=== PATIENT | female | born 1990 | race Caucasian/White ===

== ENCOUNTER → 2016-07-27 | Outpatient (REF) | payer BC ==
[2016-07-27 14:30] LABS: BASO % 0.4 % (0.0-1.0); EOS % 0.8 % (0.0-3.0); LARGE UNSTAINED CELL # 0.2 K/mm3 (0.0-0.4); LARGE UNSTAINED CELL % 2.3 % (0.0-4.0); LYMPH # 1.8 K/mm3 (1.5-6.5); LYMPH % 27.2 % (24.0-44.0); MEAN CORPUSCULAR HEMOGLOBIN 30.5 pg (27.0-33.0); MEAN CORPUSCULAR HGB CONC 33.4 g/dl (32.0-36.5); MEAN CORPUSCULAR VOLUME 91.4 fl (80.0-96.0); MONO # 0.4 K/mm3 (0.0-0.8); MONO % 6.4 % (0.0-5.0); NEUTROPHILS # 4.3 K/mm3 (1.8-7.7); NEUTROPHILS % 62.9 % (36.0-66.0); PLATELET COUNT, AUTOMATED 221 k/mm3 (150-450); RED CELL DISTRIBUTION WIDTH 12.2 % (11.5-14.5); WHITE BLOOD COUNT 6.8 K/mm3 (4.0-10.0)
[2016-07-27 15:02] LABS: THYROXINE (T4) 8.7 UG/DL (4.5-12.0)
== END ==
LOC: M LAB REF 12:54
PROVIDERS: ATTEND Advanced Practice Midwife
DX: Z80.8 Family history of malignant neoplasm of other organs or systems (principal)

== ENCOUNTER → 2016-08-15 | Outpatient (REF) | payer BC | LOC: M LAB REF 12:47 | PROVIDERS: ATTEND Advanced Practice Midwife | DX: E07.89 Other specified disorders of thyroid (principal) ==

== ENCOUNTER → 2016-08-23 | Outpatient (REF) | payer BC | LOC: M LAB REF 12:38 | PROVIDERS: ATTEND Advanced Practice Midwife | DX: L73.2 Hidradenitis suppurativa (principal) ==

== ENCOUNTER → 2016-11-07 | Outpatient (REF) | payer BC ==
[2016-11-07 18:46] LABS: FREE T4 1.78 NG/DL (0.76-1.46)
== END ==
LOC: M LABDRAW1 17:15
PROVIDERS: ATTEND Internal Medicine Endocrinology, Diabetes & Metabolism
DX: E06.3 Autoimmune thyroiditis (principal)

== ENCOUNTER → 2016-11-23 | Outpatient (REF) | payer BC | LOC: M LAB REF 12:54 | PROVIDERS: ATTEND Advanced Practice Midwife | DX: L66.2 Folliculitis decalvans (principal) ==

== ENCOUNTER → 2017-01-02 | Outpatient (REF) | payer BC ==
[2017-01-02 19:18] LABS: FREE T4 1.71 NG/DL (0.76-1.46)
== END ==
LOC: M LABDRAW1 15:10
PROVIDERS: ATTEND Nurse Practitioner Family
DX: E06.3 Autoimmune thyroiditis (principal)

== ENCOUNTER → 2017-03-13 | Outpatient (REF) | payer BC ==
[2017-03-13 14:22] LABS: FREE T4 0.91 NG/DL (0.76-1.46)
== END ==
LOC: M LAB REF 13:21
PROVIDERS: ATTEND Internal Medicine Endocrinology, Diabetes & Metabolism
DX: E06.3 Autoimmune thyroiditis (principal)

== ENCOUNTER → 2017-05-11 | Outpatient (REF) | payer BC ==
[2017-05-11 16:15] LABS: FREE T4 0.95 NG/DL (0.76-1.46)
== END ==
LOC: M LABDRAW1 13:12
DX: E06.3 Autoimmune thyroiditis (principal)
CPT/HCPCS: 84443

== ENCOUNTER → 2017-07-13 | Outpatient (REF) | payer BC ==
[2017-07-13 11:36] LABS: FREE T4 1.03 NG/DL (0.76-1.46)
== END ==
LOC: M LABDRAW1 09:21
DX: E06.3 Autoimmune thyroiditis (principal)
CPT/HCPCS: 84443

== ENCOUNTER → 2017-10-18 | Outpatient (REF) | payer BC ==
[2017-10-18 16:32] LABS: THYROXINE (T4) 12.2 UG/DL (4.5-12.0)
== END ==
LOC: M LABDRAW1 15:39
DX: E06.3 Autoimmune thyroiditis (principal)
CPT/HCPCS: 84443

== ENCOUNTER → 2018-01-07 | Outpatient (REF) | payer BC ==
[2018-01-07 13:23] LABS: FREE T4 1.15 NG/DL (0.76-1.46)
== END ==
LOC: M LABDRAW1 11:54
DX: E06.3 Autoimmune thyroiditis (principal)
CPT/HCPCS: 84443

== ENCOUNTER → 2018-07-18 | Outpatient (REF) | payer BC ==
[2018-07-18 17:39] LABS: FREE T4 1.05 NG/DL (0.76-1.46); THYROID STIMULATING HORMONE 2.46 uIU/ML (0.358-3.740)
== END ==
LOC: M LABDRAW1 16:06
PROVIDERS: ATTEND Internal Medicine Endocrinology, Diabetes & Metabolism
DX: E06.3 Autoimmune thyroiditis (principal)

== ENCOUNTER → 2020-07-09 | Outpatient (REF) | payer BC ==
[2020-07-09 17:56] LABS: FREE T4 0.85 NG/DL (0.76-1.46); THYROID STIMULATING HORMONE 6.19 uIU/ML (0.358-3.740)
== END ==
LOC: M PLALAB 16:52
PROVIDERS: ATTEND Nurse Practitioner Family
DX: E06.3 Autoimmune thyroiditis (principal)

== ENCOUNTER → 2020-09-08 | Outpatient (REF) | payer BC ==
[2020-09-08 14:45] LABS: FREE T4 1.07 NG/DL (0.76-1.46); THYROID STIMULATING HORMONE 2.84 uIU/ML (0.358-3.740)
== END ==
LOC: M PLALAB 13:04
PROVIDERS: ATTEND Nurse Practitioner Family
DX: E06.3 Autoimmune thyroiditis (principal)

== ENCOUNTER → 2021-01-04 | Outpatient (CLI) | payer BC ==
[2021-01-04 17:58] LABS: FREE T4 1.1 NG/DL (0.76-1.46); THYROID STIMULATING HORMONE 2.74 uIU/ML (0.358-3.740)
== END ==
LOC: M PLALAB 14:05
PROVIDERS: ATTEND Nurse Practitioner Family
DX: E06.3 Autoimmune thyroiditis (principal)

== ENCOUNTER → 2021-07-27 | Outpatient (CLI) | payer BC ==
[2021-07-27 18:41] LABS: FREE T4 1.04 NG/DL (0.76-1.46); THYROID STIMULATING HORMONE 4.87 uIU/ML (0.358-3.740)
== END ==
LOC: M PLALAB 10:00
PROVIDERS: ATTEND Nurse Practitioner Family
DX: E06.3 Autoimmune thyroiditis (principal)

== ENCOUNTER → 2022-09-05 | Outpatient (CLI) | payer BC ==
[2022-09-05 11:50] LABS: BASO % 0.7 % (0.0-1.0); EOS % 0.7 % (0.0-3.0); HEMATOCRIT 38.9 % (36.0-47.0); HEMOGLOBIN 12.8 g/dl (12.0-15.5); LYMPH # 1.7 10^3/uL (1.5-5.0); LYMPH % 27.8 % (24.0-44.0); MEAN CORPUSCULAR HGB CONC 32.9 g/dl (32.0-36.5); MONO # 0.5 10^3/uL (0.0-0.8); MONO % 8.9 % (2.0-8.0); NEUTROPHILS # 3.7 10^3/uL (1.5-8.5); NEUTROPHILS % 61.7 % (36.0-66.0); PLATELET COUNT, AUTOMATED 262 10^3/uL (150-450); RED BLOOD COUNT 4.42 10^6/uL (4.00-5.40); WHITE BLOOD COUNT 5.9 10^3/uL (4.0-10.0)
[2022-09-05 11:56] LABS: APPEARANCE, URINE CLEAR (CLEAR); BACTERIA, URINE AUTO NEGATIVE (NEGATIVE); BILIRUBIN, URINE AUTO NEGATIVE (NEGATIVE); BLOOD, URINE BLOOD 2+ (NEGATIVE); COLOR, URINE YELLOW (YELLOW); GLUCOSE, URINE (UA) AUTO NEGATIVE (NEGATIVE); KETONE, URINE AUTO NEGATIVE (NEGATIVE); LEUKOCYTE ESTERASE, URINE AUTO NEGATIVE (NEGATIVE); MUCUS, URINE SMALL (NEGATIVE); NITRITE, URINE AUTO NEGATIVE (NEGATIVE); PROTEIN, URINE AUTO NEGATIVE (NEGATIVE); RBC, URINE AUTO 0 /HPF (0-3); SPECIFIC GRAVITY URINE AUTO 1.016 (1.002-1.035); SQUAMOUS EPITHELIAL CELL UR AU 3 /HPF (0-6); UROBILINOGEN, URINE AUTO 0.2 mg/dL (0.0-2.0); WBC, URINE AUTO 2 /HPF (0-3)
[2022-09-05 12:09] LABS: TOTAL 25(OH) VITAMIN D 16.9 NG/ML (20.0-100.0)
[2022-09-05 12:10] LABS: ALBUMIN 4.4 G/DL (3.2-5.2); ALKALINE PHOSPHATASE 46 U/L (46-116); ALT/SGPT 12 U/L (7.0-40); AST/SGOT 10 U/L (<34); BILIRUBIN,TOTAL 0.4 MG/DL (0.3-1.2); BLOOD UREA NITROGEN 9 MG/DL (9-23); CARBON DIOXIDE LEVEL 28 MMOL/L (20-31); CHLORIDE LEVEL 107 MMOL/L (98-107); CHOLESTEROL LEVEL 169 MG/DL (<200); CHOLESTEROL RISK RATIO 2.89 (<5); CREATININE FOR GFR 0.67 MG/DL (0.55-1.30); GLOMERULAR FILTRATION RATE > 60.0 (>60); GLUCOSE, FASTING 85 MG/DL (60-100); HDL CHOLESTEROL 58.3 MG/DL (>40); LDL CHOLESTEROL 95.7 MG/DL (<100); NON-HDL-C 110.7 MG/DL; POTASSIUM SERUM 4.2 MMOL/L (3.5-5.1); SODIUM LEVEL 141 MMOL/L (136-145); TOTAL PROTEIN 7.2 G/DL (5.7-8.2); TRIGLYCERIDES LEVEL 75 MG/DL (<150)
[2022-09-05 12:11] LABS: FOLATE 22.3 NG/ML (>5.4); FREE T4 0.97 NG/DL (0.89-1.76); VITAMIN B12 LEVEL 620 PG/ML (211-911)
== END ==
LOC: M RAD 09:32
PROVIDERS: ATTEND Physician Assistant
DX: Z00.00 Encounter for general adult medical examination without abnormal findings (principal); R20.2 Paresthesia of skin

== ENCOUNTER 2022-12-29 09:50 | Emergency (ER) | payer BC ==
[~2022-12-29] VITALS: Ht 165.1 cm; Wt 79.2 kg
[2022-12-29 09:51] VITALS: BP 131/71; TEMP 97.7; O2SAT 97
[2022-12-29 13:47] LABS: GC DNA AMPLIFICATION NEGATIVE (NEGATIVE)
== END 2022-12-29 12:37 | disposition home or self-care (01) ==
LOC: M ED 09:50
DX: D25.9 Leiomyoma of uterus, unspecified (principal)

== ENCOUNTER → 2023-01-02 | Outpatient (REF) | payer BC ==
[2023-01-03 17:50] LABS: APPEARANCE, URINE HAZY (CLEAR); BACTERIA, URINE AUTO NEGATIVE (NEGATIVE); BILIRUBIN, URINE AUTO NEGATIVE (NEGATIVE); BLOOD, URINE BLOOD NEGATIVE (NEGATIVE); COLOR, URINE YELLOW (YELLOW); GLUCOSE, URINE (UA) AUTO NEGATIVE (NEGATIVE); KETONE, URINE AUTO NEGATIVE (NEGATIVE); LEUKOCYTE ESTERASE, URINE AUTO NEGATIVE (NEGATIVE); MUCUS, URINE SMALL (NEGATIVE); NITRITE, URINE AUTO NEGATIVE (NEGATIVE); PROTEIN, URINE AUTO NEGATIVE (NEGATIVE); RBC, URINE AUTO 3 /HPF (0-3); SPECIFIC GRAVITY URINE AUTO 1.023 (1.002-1.035); SQUAMOUS EPITHELIAL CELL UR AU 1 /HPF (0-6); WBC, URINE AUTO 1 /HPF (0-3)
== END ==
LOC: M SFHCLERA 17:05
PROVIDERS: ATTEND Physician Assistant
DX: D25.9 Leiomyoma of uterus, unspecified (principal); R30.0 Dysuria

== ENCOUNTER → 2023-01-15 | Outpatient (REF) | payer BC | LOC: M SFHCWAGY 13:19 | PROVIDERS: ATTEND Obstetrics & Gynecology | DX: Z12.4 Encounter for screening for malignant neoplasm of cervix (principal); D25.9 Leiomyoma of uterus, unspecified; N85.8 Other specified noninflammatory disorders of uterus; R87.618 Other abnormal cytological findings on specimens from cervix uteri; R87.810 Cervical high risk human papillomavirus (HPV) DNA test positive | CPT/HCPCS: 87624; 88305; G0123 ==

== ENCOUNTER → 2023-01-25 | Outpatient (CLI) | payer BC | LOC: M PLARAD 09:47 | PROVIDERS: ATTEND Obstetrics & Gynecology | DX: D25.9 Leiomyoma of uterus, unspecified (principal); R19.09 Other intra-abdominal and pelvic swelling, mass and lump ==

== ENCOUNTER → 2023-01-26 | Outpatient (CLI) | payer BC ==
[2023-01-26 18:53] LABS: LDH LACTATE DEHYDROGENASE 288 U/L (120-246)
[2023-01-26 18:55] LABS: CARCINOEMBRYONIC ANTIGEN < 2.0 NG/ML (<2.5)
[2023-01-26 19:09] LABS: CA19-9 TUMOR MARKER,CARBOHYDRA 13.6 U/ML (<35.0)
== END ==
LOC: M PLALAB 14:55
PROVIDERS: ATTEND Obstetrics & Gynecology
DX: R19.00 Intra-abdominal and pelvic swelling, mass and lump, unspecified site (principal)

== ENCOUNTER → 2023-01-30 | Outpatient (CLI) | payer BC ==
[2023-01-30 15:52] LABS: BASO # 0.1 10^3/uL (0.0-0.2); BASO % 0.5 % (0.0-1.0); EOS # 0.1 10^3/uL (0.0-0.5); EOS % 0.7 % (0.0-3.0); HEMOGLOBIN 12.2 g/dl (12.0-15.5); LYMPH # 1.9 10^3/uL (1.5-5.0); LYMPH % 20.7 % (24.0-44.0); MEAN CORPUSCULAR HEMOGLOBIN 28.5 pg (27.0-33.0); MEAN CORPUSCULAR HGB CONC 32.1 g/dl (32.0-36.5); MEAN CORPUSCULAR VOLUME 88.8 fl (80.0-96.0); MONO # 0.7 10^3/uL (0.0-0.8); MONO % 7.8 % (2.0-8.0); NEUTROPHILS # 6.4 10^3/uL (1.5-8.5); PLATELET COUNT, AUTOMATED 362 10^3/uL (150-450); RED BLOOD COUNT 4.28 10^6/uL (4.00-5.40); WHITE BLOOD COUNT 9.2 10^3/uL (4.0-10.0)
[2023-01-30 15:56] LABS: BLOOD UREA NITROGEN 13 MG/DL (9-23); CALCIUM LEVEL 9.2 MG/DL (8.5-10.1); CARBON DIOXIDE LEVEL 29 MMOL/L (20-31); CHLORIDE LEVEL 105 MMOL/L (98-107); CREATININE FOR GFR 0.63 MG/DL (0.55-1.30); GLOMERULAR FILTRATION RATE > 60.0 (>60); GLUCOSE, FASTING 84 MG/DL (60-100); POTASSIUM SERUM 4.7 MMOL/L (3.5-5.1); SODIUM LEVEL 141 MMOL/L (136-145)
[2023-01-30 16:11] LABS: URINE PREG TEST NEGATIVE (NEGATIVE)
== END ==
LOC: M PLALAB 12:47
PROVIDERS: ATTEND Obstetrics & Gynecology
DX: N83.8 Other noninflammatory disorders of ovary, fallopian tube and broad ligament (principal)

== ENCOUNTER 2023-05-01 20:05 | Observation (INO) | payer BC ==
[~2023-05-01] VITALS: Ht 165.1 cm; Wt 82.1 kg
[2023-05-01] MEDS ORDERED: MIRA3350 PO (20:44)
[2023-05-01] MEDS ORDERED: oxycodone PO (20:44)
[2023-05-01] MEDS: LEVOTHYROXINE 75MCG TABLET (0.075MG) PO SCH (21:00)
[2023-05-01 21:10] LABS: BASO % 0.3 % (0.0-1.0); EOS % 0.2 % (0.0-3.0); HEMATOCRIT 31.9 % (36.0-47.0); HEMOGLOBIN 9.9 g/dl (12.0-15.5); LYMPH # 0.9 10^3/uL (1.5-5.0); LYMPH % 7.7 % (24.0-44.0); MEAN CORPUSCULAR HEMOGLOBIN 25.3 pg (27.0-33.0); MEAN CORPUSCULAR VOLUME 81.6 fl (80.0-96.0); MONO # 0.8 10^3/uL (0.0-0.8); MONO % 6.3 % (2.0-8.0); NEUTROPHILS # 10.2 10^3/uL (1.5-8.5); PLATELET COUNT, AUTOMATED 438 10^3/uL (150-450); RED BLOOD COUNT 3.91 10^6/uL (4.00-5.40)
[2023-05-01] MEDS: ONDANSETRON 4MG 2ML VIAL IV ONE (21:17)
[2023-05-01] MEDS: MORPHINE 4 MG/ML 1ML VIAL IV ONE ×2 (21:18→22:00)
[2023-05-01] MEDS ORDERED: VITA100093 PO (21:23)
[2023-05-01] MEDS ORDERED: CETI-24 PO (21:23)
[2023-05-01] MEDS ORDERED: SYNT75TA PO (21:23)
[2023-05-01] MEDS ORDERED: OXYC-517 PO (21:23)
[2023-05-01] MEDS ORDERED: FLUO1TAB PO (21:23)
[2023-05-01] MEDS ORDERED: ATIV1TAB10 PO (21:23)
[2023-05-01] MEDS ORDERED: MIRA33506 PO (21:23)
[2023-05-01] MEDS ORDERED: HOME MED LIST COMPLETE! XX SCH (21:25)
[2023-05-01 21:31] LABS: LIPASE 21 U/L (12-53)
[2023-05-01 21:33] LABS: ALBUMIN 3.4 G/DL (3.2-5.2); ALKALINE PHOSPHATASE 87 U/L (46-116); ALT/SGPT < 9 U/L (7.0-40); AST/SGOT 22 U/L (<34); BILIRUBIN,DIRECT 0.1 MG/DL (<0.4); BILIRUBIN,TOTAL 0.3 MG/DL (0.3-1.2); BLOOD UREA NITROGEN 10 MG/DL (9-23); CALCIUM LEVEL 9.1 MG/DL (8.5-10.1); CARBON DIOXIDE LEVEL 26 MMOL/L (20-31); CHLORIDE LEVEL 103 MMOL/L (98-107); CREATININE FOR GFR 0.63 MG/DL (0.55-1.30); GLOMERULAR FILTRATION RATE > 60.0 (>60); GLUCOSE, FASTING 109 MG/DL (60-100); POTASSIUM SERUM 4.2 MMOL/L (3.5-5.1); SODIUM LEVEL 136 MMOL/L (136-145); TOTAL PROTEIN 7.2 G/DL (5.7-8.2)
[2023-05-01] MEDS ORDERED: ISOVUE-370 76% 100ML VIAL As Ordered ONE (21:36)
[2023-05-01] MEDS: BISACODYL 10MG SUPP PR ONE (21:50)
[2023-05-01] MEDS: FLEET ENEMA PR STA (23:53)
[2023-05-02] VITALS (7 sets, daily range): BP systolic 98–126; BP diastolic 59–81; TEMP 95.6–98.1; O2SAT 96–98
[2023-05-02] MEDS: fentaNYL 25 MCG/HR PATCH TOP ONE (01:20)
[2023-05-02] MEDS ORDERED: FENTANYL REMOVAL DOCUMENTATION MISC XX SCH (01:20)
[2023-05-02 02:09] LABS: RSV AMPLIFICATION NEGATIVE (NEGATIVE)
[2023-05-02] MEDS: LevoFLOXacin IV 750 MG in IV 1 EA IV ONE (02:48)
[2023-05-02] MEDS ORDERED: ONDANSETRON 4MG 2ML VIAL IV PRN (02:50)
[2023-05-02] MEDS ORDERED: LORazepam 0.5 MG TAB PO PRN (02:50)
[2023-05-02] MEDS: LR 1,000 ML IV SCH (02:50)
[2023-05-02] MEDS: HEPARIN SOD (PORCINE) 5000UNITS/ML 1ML VIAL/SYRINGE SC SCH (05:20)
[2023-05-02] MEDS: FLEET ENEMA PR SCH (05:21)
[2023-05-02] MEDS: HYDROMORPHONE HCL 0.5 MG/ 0.5 ML SYRINGE IV PRN ×2 (06:21→09:28)
[2023-05-02] MEDS: HYDROMORPHONE HCL 0.5 MG/ 0.5 ML SYRINGE IV ONE (08:10)
[2023-05-02] MEDS: NS 1,000 ML IV ONE ×2 (08:34→14:29)
[2023-05-02] MEDS: FLUoxetine 10 MG CAP PO SCH (08:35)
[2023-05-02] MEDS: MIDODRINE 5 MG TAB PO ONE (08:35)
[2023-05-02] MEDS: BISACODYL 10MG SUPP PR PRN (10:32)
[2023-05-02] MEDS: METOCLOPRAMIDE INJ 10MG/2ML VIAL IV SCH (14:16)
[2023-05-02 14:44] LABS: BASO % 0.3 % (0.0-1.0); EOS # 0.1 10^3/uL (0.0-0.5); EOS % 0.7 % (0.0-3.0); HEMATOCRIT 29.2 % (36.0-47.0); LYMPH # 1.4 10^3/uL (1.5-5.0); LYMPH % 14.7 % (24.0-44.0); MEAN CORPUSCULAR HEMOGLOBIN 25.7 pg (27.0-33.0); MEAN CORPUSCULAR HGB CONC 30.8 g/dl (32.0-36.5); MEAN CORPUSCULAR VOLUME 83.4 fl (80.0-96.0); MONO # 1.1 10^3/uL (0.0-0.8); MONO % 11.3 % (2.0-8.0); NEUTROPHILS # 6.9 10^3/uL (1.5-8.5); NEUTROPHILS % 72.7 % (36.0-66.0); PLATELET COUNT, AUTOMATED 392 10^3/uL (150-450); WHITE BLOOD COUNT 9.5 10^3/uL (4.0-10.0)
[2023-05-02] MEDS ORDERED: MOM 30ML SUSPENSION UDC PO PRN (14:55)
[2023-05-02] MEDS: HYDROMORPHONE HCL 0.5 MG/ 0.5 ML SYRINGE IV STA (14:55)
[2023-05-02] MEDS: LACTULOSE 20GM/30ML SYRUP UDC PO SCH (14:55)
[2023-05-02 15:21] LABS: ALBUMIN 3.1 G/DL (3.2-5.2); ALKALINE PHOSPHATASE 85 U/L (46-116); ALT/SGPT < 9 U/L (7.0-40); AST/SGOT 18 U/L (<34); BILIRUBIN,TOTAL 0.5 MG/DL (0.3-1.2); BLOOD UREA NITROGEN 9 MG/DL (9-23); CALCIUM LEVEL 8.8 MG/DL (8.5-10.1); CARBON DIOXIDE LEVEL 28 MMOL/L (20-31); CHLORIDE LEVEL 104 MMOL/L (98-107); CREATININE FOR GFR 0.73 MG/DL (0.55-1.30); GLOMERULAR FILTRATION RATE > 60.0 (>60); GLUCOSE, FASTING 79 MG/DL (60-100); POTASSIUM SERUM 3.7 MMOL/L (3.5-5.1); SODIUM LEVEL 136 MMOL/L (136-145); TOTAL PROTEIN 6.8 G/DL (5.7-8.2)
[2023-05-02] MEDS: MAGNESIUM CITRATE 300ML BTL PO ONE (16:23)
[2023-05-02] MEDS: SENOKOT S TAB PO SCH (19:58)
[2023-05-02] MEDS: BISACODYL 10MG SUPP PR SCH (19:58)
[2023-05-03 06:00] VITALS: BP 115/67; TEMP 97.2; O2SAT 96
[2023-05-03 06:24] LABS: BASO % 0.1 % (0.0-1.0); EOS % 0.1 % (0.0-3.0); HEMATOCRIT 29.7 % (36.0-47.0); LYMPH % 7.1 % (24.0-44.0); MEAN CORPUSCULAR HEMOGLOBIN 25.3 pg (27.0-33.0); MEAN CORPUSCULAR HGB CONC 30.3 g/dl (32.0-36.5); MEAN CORPUSCULAR VOLUME 83.4 fl (80.0-96.0); MONO # 0.9 10^3/uL (0.0-0.8); MONO % 6.8 % (2.0-8.0); NEUTROPHILS # 11.5 10^3/uL (1.5-8.5); NEUTROPHILS % 85.5 % (36.0-66.0); PLATELET COUNT, AUTOMATED 406 10^3/uL (150-450); RED BLOOD COUNT 3.56 10^6/uL (4.00-5.40); WHITE BLOOD COUNT 13.4 10^3/uL (4.0-10.0)
[2023-05-03 06:54] LABS: BLOOD UREA NITROGEN 10 MG/DL (9-23); CALCIUM LEVEL 8.9 MG/DL (8.5-10.1); CARBON DIOXIDE LEVEL 28 MMOL/L (20-31); CHLORIDE LEVEL 107 MMOL/L (98-107); CREATININE FOR GFR 0.63 MG/DL (0.55-1.30); GLOMERULAR FILTRATION RATE > 60.0 (>60); GLUCOSE, FASTING 130 MG/DL (60-100); POTASSIUM SERUM 4.6 MMOL/L (3.5-5.1); SODIUM LEVEL 141 MMOL/L (136-145)
[2023-05-03 09:00] VITALS: O2SAT 97
[2023-05-03] MEDS: MAGNESIUM CITRATE 300ML BTL PO ONE (10:31)
[2023-05-03 14:00] VITALS: BP 118/68; TEMP 97.9; O2SAT 96
[2023-05-03] MEDS: METOCLOPRAMIDE 5 MG TAB PO SCH (17:06)
[2023-05-03] MEDS: FLEET OIL RETENTION ENEMA PR PRN (17:06)
[2023-05-03] MEDS: fentaNYL 50 MCG/HR PATCH TOP SCH (17:07)
[2023-05-03] MEDS: MOM 30ML SUSPENSION UDC PO SCH (20:29)
[2023-05-03] MEDS: HYDROmorphone 4MG TABLET PO PRN (20:38)
[2023-05-03 21:00] VITALS: BP 116/70; TEMP 97.7; O2SAT 98
[2023-05-04] MEDS: dexAMETHasone 4 MG TAB PO SCH ×2 (05:18→12:43)
[2023-05-04 05:45] VITALS: BP 122/74; TEMP 97.9; O2SAT 97
[2023-05-04] MEDS: ARTIFICIAL TEARS DROPS 15ML BTL (VISINE DRY RELIEF) OU PRN (06:15)
[2023-05-04 07:12] LABS: BASO % 0.2 % (0.0-1.0); EOS # 0.1 10^3/uL (0.0-0.5); EOS % 0.5 % (0.0-3.0); HEMATOCRIT 27.8 % (36.0-47.0); HEMOGLOBIN 8.7 g/dl (12.0-15.5); LYMPH # 1.7 10^3/uL (1.5-5.0); LYMPH % 14.3 % (24.0-44.0); MEAN CORPUSCULAR HEMOGLOBIN 25.7 pg (27.0-33.0); MEAN CORPUSCULAR HGB CONC 31.3 g/dl (32.0-36.5); MEAN CORPUSCULAR VOLUME 82.2 fl (80.0-96.0); MONO # 1.1 10^3/uL (0.0-0.8); MONO % 9.3 % (2.0-8.0); NEUTROPHILS # 9.1 10^3/uL (1.5-8.5); NEUTROPHILS % 75.1 % (36.0-66.0); PLATELET COUNT, AUTOMATED 395 10^3/uL (150-450); RED BLOOD COUNT 3.38 10^6/uL (4.00-5.40); WHITE BLOOD COUNT 12.1 10^3/uL (4.0-10.0)
[2023-05-04] MEDS ORDERED: dexAMETHasone 4 MG TAB PO SCH (12:00)
[2023-05-04] MEDS ORDERED: FENT1PAT25 TOP (12:19)
[2023-05-04] MEDS ORDERED: MOM30SS2 PO (12:19)
[2023-05-04] MEDS ORDERED: SENN-52 PO (12:19)
[2023-05-04] MEDS ORDERED: METO5TAB2 PO (12:19)
[2023-05-04] MEDS ORDERED: DEXA4TA PO (12:19)
[2023-05-04] MEDS ORDERED: DILA4TAB13 PO (12:19)
[2023-05-04] MEDS ORDERED: MILKSUS7 PO (12:21)
[2023-05-04] MEDS ORDERED: DULC10SU2 PR (12:21)
[2023-05-04 14:00] VITALS: BP 123/76; TEMP 97.5; O2SAT 96
[2023-05-05] MEDS ORDERED: FENTANYL REMOVAL DOCUMENTATION MISC XX ONE (01:00)
[2023-05-05] MEDS ORDERED: dexAMETHasone 4 MG TAB PO SCH (06:00)
== END 2023-05-04 14:53 | disposition home or self-care (01) ==
LOC: M ED 20:05 → M ED INP 20:06 → ENRESERV 05-02 03:07 → M MSPAV 05-02 04:36
PROVIDERS: ADMIT Internal Medicine; ATTEND General Practice
DX: C41.9 Malignant neoplasm of bone and articular cartilage, unspecified (principal); C78.00 Secondary malignant neoplasm of unspecified lung; C78.7 Secondary malignant neoplasm of liver and intrahepatic bile duct; C78.6 Secondary malignant neoplasm of retroperitoneum and peritoneum; G89.29 Other chronic pain; K63.89 Other specified diseases of intestine; K56.7 Ileus, unspecified; N13.30 Unspecified hydronephrosis; Z79.899 Other long term (current) drug therapy; Z88.0 Allergy status to penicillin; Z88.8 Allergy status to other drugs, medicaments and biological substances; F41.9 Anxiety disorder, unspecified; E03.9 Hypothyroidism, unspecified
CPT/HCPCS: 36415; 72148; 74018; 74177; 77280; 77290; 77295; 77300; 77334; 77412; 80048; 80053; 80076; 81001; 83690; 85025; 87631; 93971; 96361; 96365; 96372; 96375; 96376; 99285; J1100; J1170; J1956; J2405; J2765; Q9967

== ENCOUNTER 2023-05-10 09:25 | Outpatient (RCR) | payer BC ==
[~2023-05-10 09:25] MED LIST: ATIV1TAB10 PO; CETI-24 PO; DEXA4TA PO; DILA4TAB13 PO; DULC10SU2 PR; FENT1PAT25 TOP; FLUO1TAB PO; METO5TAB2 PO; MILKSUS7 PO; MIRA3350 PO; MIRA33506 PO; MOM30SS2 PO; OXYC-517 PO; SENN-52 PO; SYNT75TA PO; VITA100093 PO; oxycodone PO
[2023-05-10] MEDS ORDERED: DILA4TAB13 PO (12:52)
[2023-05-10] MEDS ORDERED: DEXA2TA PO (12:52)
[2023-05-18] MEDS ORDERED: ATIV1TAB10 PO (09:16)
[2023-05-18] MEDS ORDERED: FENT12DI8 TOP (09:16)
[2023-05-18] MEDS ORDERED: METO5TAB2 PO (09:16)
[2023-05-18] MEDS ORDERED: FLUO1TAB PO (09:16)
== END 2023-05-24 ==
LOC: M ONCR 09:25
PROVIDERS: ATTEND General Practice
DX: Z51.0 Encounter for antineoplastic radiation therapy (principal); C55 Malignant neoplasm of uterus, part unspecified

== ENCOUNTER → 2023-05-17 | Outpatient (CLI) | payer BC ==
[~2023-05-17] VITALS: Ht 165.1 cm; Wt 84.0 kg
[~2023-05-17] MED LIST changes: +DEXA2TA PO; +FENT12DI8 TOP
[2023-05-17 13:08] VITALS: BP 129/81; O2SAT 96
[2023-05-17 14:40] LABS: BASO % 0.1 % (0.0-1.0); EOS # 0.1 10^3/uL (0.0-0.5); HEMATOCRIT 31.8 % (36.0-47.0); LYMPH # 0.3 10^3/uL (1.5-5.0); LYMPH % 3.3 % (24.0-44.0); MEAN CORPUSCULAR HEMOGLOBIN 26.2 pg (27.0-33.0); MEAN CORPUSCULAR HGB CONC 31.4 g/dl (32.0-36.5); MEAN CORPUSCULAR VOLUME 83.5 fl (80.0-96.0); MONO # 0.8 10^3/uL (0.0-0.8); MONO % 8.8 % (2.0-8.0); NEUTROPHILS % 85.9 % (36.0-66.0); PLATELET COUNT, AUTOMATED 212 10^3/uL (150-450); RED BLOOD COUNT 3.81 10^6/uL (4.00-5.40); WHITE BLOOD COUNT 9.3 10^3/uL (4.0-10.0)
[2023-05-17 15:16] LABS: ALBUMIN 3.6 G/DL (3.2-5.2); ALKALINE PHOSPHATASE 61 U/L (46-116); ALT/SGPT 20 U/L (7.0-40); AST/SGOT 10 U/L (<34); BILIRUBIN,TOTAL 0.4 MG/DL (0.3-1.2); BLOOD UREA NITROGEN 20 MG/DL (9-23); CARBON DIOXIDE LEVEL 28 MMOL/L (20-31); CHLORIDE LEVEL 102 MMOL/L (98-107); CREATININE FOR GFR 0.56 MG/DL (0.55-1.30); GLOMERULAR FILTRATION RATE > 60.0 (>60); GLUCOSE, FASTING 109 MG/DL (60-100); POTASSIUM SERUM 4.3 MMOL/L (3.5-5.1); SODIUM LEVEL 134 MMOL/L (136-145); TOTAL PROTEIN 6.6 G/DL (5.7-8.2)
[2023-05-17 15:18] LABS: THYROID STIMULATING HORMONE 2.346 uIU/ML (0.55-4.78)
== END ==
LOC: M PAL 12:50
PROVIDERS: ATTEND Nurse Practitioner Adult Health
DX: C55 Malignant neoplasm of uterus, part unspecified (principal); C78.00 Secondary malignant neoplasm of unspecified lung; C78.7 Secondary malignant neoplasm of liver and intrahepatic bile duct; C78.6 Secondary malignant neoplasm of retroperitoneum and peritoneum; C41.9 Malignant neoplasm of bone and articular cartilage, unspecified; G89.29 Other chronic pain; N13.30 Unspecified hydronephrosis; K59.00 Constipation, unspecified; M25.562 Pain in left knee; Z51.5 Encounter for palliative care; Z79.899 Other long term (current) drug therapy; Z88.0 Allergy status to penicillin; Z88.8 Allergy status to other drugs, medicaments and biological substances; Z92.21 Personal history of antineoplastic chemotherapy
CPT/HCPCS: 80053; 84443; 85025; G0463

== ENCOUNTER → 2023-05-23 | Outpatient (CLI) | payer BC ==
[~2023-05-23] MED LIST changes: +PROHANCE 279.3MG/ML 15ML VIAL As Ordered ONE; +PROHANCE 279.3MG/ML 5ML VIAL As Ordered ONE
== END ==
LOC: M RAD 07:07
PROVIDERS: ATTEND Nurse Practitioner Adult Health
DX: R53.1 Weakness (principal); C41.9 Malignant neoplasm of bone and articular cartilage, unspecified; G62.9 Polyneuropathy, unspecified
CPT/HCPCS: 70553; A9576

== ENCOUNTER 2023-05-29 13:08 | Emergency (ER) | payer BC ==
[~2023-05-29] VITALS: Ht 165.1 cm; Wt 84.8 kg
[~2023-05-29 13:08] MED LIST changes: -PROHANCE 279.3MG/ML 15ML VIAL As Ordered ONE; -PROHANCE 279.3MG/ML 5ML VIAL As Ordered ONE
[2023-05-29 14:32] LABS: BASO % 0.5 % (0.0-1.0); EOS # 0.1 10^3/uL (0.0-0.5); EOS % 2.6 % (0.0-3.0); HEMOGLOBIN 8.9 g/dl (12.0-15.5); LYMPH # 0.4 10^3/uL (1.5-5.0); LYMPH % 10.3 % (24.0-44.0); MEAN CORPUSCULAR HEMOGLOBIN 26.1 pg (27.0-33.0); MEAN CORPUSCULAR HGB CONC 31.8 g/dl (32.0-36.5); MEAN CORPUSCULAR VOLUME 82.1 fl (80.0-96.0); MONO # 0.4 10^3/uL (0.0-0.8); MONO % 10.1 % (2.0-8.0); NEUTROPHILS # 3.2 10^3/uL (1.5-8.5); NEUTROPHILS % 75.8 % (36.0-66.0); PLATELET COUNT, AUTOMATED 384 10^3/uL (150-450); RED BLOOD COUNT 3.41 10^6/uL (4.00-5.40); WHITE BLOOD COUNT 4.2 10^3/uL (4.0-10.0)
[2023-05-29 15:02] LABS: ALBUMIN 2.7 G/DL (3.2-5.2); ALKALINE PHOSPHATASE 91 U/L (46-116); ALT/SGPT 20 U/L (7.0-40); AST/SGOT 24 U/L (<34); BILIRUBIN,DIRECT 0.2 MG/DL (<0.4); BILIRUBIN,TOTAL 0.4 MG/DL (0.3-1.2); BLOOD UREA NITROGEN 9 MG/DL (9-23); CALCIUM LEVEL 8.2 MG/DL (8.5-10.1); CARBON DIOXIDE LEVEL 28 MMOL/L (20-31); CHLORIDE LEVEL 104 MMOL/L (98-107); CREATININE FOR GFR 0.56 MG/DL (0.55-1.30); GLOMERULAR FILTRATION RATE > 60.0 (>60); GLUCOSE, FASTING 90 MG/DL (60-100); POTASSIUM SERUM 3.9 MMOL/L (3.5-5.1); SODIUM LEVEL 140 MMOL/L (136-145); TOTAL PROTEIN 6.1 G/DL (5.7-8.2)
[2023-05-29] MEDS: NS 500 ML IV ONE (18:03)
[2023-05-29] MEDS: HYDROMORPHONE HCL 0.5 MG/ 0.5 ML SYRINGE IV PRN (18:03)
[2023-05-29] MEDS ORDERED: ISOVUE-370 76% 100ML VIAL As Ordered ONE (18:29)
[2023-05-29 20:01] VITALS: TEMP 98.2
[2023-05-29] MEDS ORDERED: IBUP-1022 PO (21:33)
[2023-05-29] MEDS ORDERED: PILL CUTTER 1 EACH XX PRN (21:40)
[2023-05-29] MEDS: KETOROLAC 30 MG/ML 1ML VIAL IV ONE (21:50)
[2023-05-29] MEDS: HYDROmorphone 2 MG TAB PO ONE (21:51)
[2023-05-29 21:53] VITALS: BP 124/73; O2SAT 98
[2023-05-30] MEDS ORDERED: TORS20TA2 PO (12:20)
[2023-05-30] MEDS ORDERED: SENN-52 PO (13:27)
[2023-05-30] MEDS ORDERED: REGL5TAB2 PO (13:27)
[2023-05-30] MEDS ORDERED: DILA4TAB13 PO (14:03)
== END 2023-05-29 22:02 | disposition home or self-care (01) ==
LOC: M ED 13:08
DX: R10.9 Unspecified abdominal pain (principal); R19.00 Intra-abdominal and pelvic swelling, mass and lump, unspecified site; J91.8 Pleural effusion in other conditions classified elsewhere; C41.9 Malignant neoplasm of bone and articular cartilage, unspecified; Z79.899 Other long term (current) drug therapy; Z79.1 Long term (current) use of non-steroidal anti-inflammatories (NSAID); Z79.82 Long term (current) use of aspirin; Z79.890 Hormone replacement therapy; Z88.0 Allergy status to penicillin; Z88.6 Allergy status to analgesic agent; Z92.3 Personal history of irradiation
CPT/HCPCS: 71046; 71275; 74177; 80048; 80076; 83605; 85025; 87040; 87486; 87581; 87633; 87798; 96361; 96374; 96375; 99284; J1170; J1885; Q9967

== ENCOUNTER → 2023-05-30 | Outpatient (CLI) | payer BC ==
[~2023-05-30] MED LIST changes: +IBUP-1022 PO; +REGL5TAB2 PO; +TORS20TA2 PO
== END ==
LOC: M PAL 11:30
PROVIDERS: ATTEND Nurse Practitioner Adult Health
DX: G89.3 Neoplasm related pain (acute) (chronic) (principal); C41.9 Malignant neoplasm of bone and articular cartilage, unspecified; C78.00 Secondary malignant neoplasm of unspecified lung; C78.7 Secondary malignant neoplasm of liver and intrahepatic bile duct; C78.6 Secondary malignant neoplasm of retroperitoneum and peritoneum; G89.29 Other chronic pain; K59.00 Constipation, unspecified; Z51.5 Encounter for palliative care; Z79.52 Long term (current) use of systemic steroids; Z79.891 Long term (current) use of opiate analgesic; Z79.899 Other long term (current) drug therapy; Z79.890 Hormone replacement therapy; Z88.0 Allergy status to penicillin; Z88.1 Allergy status to other antibiotic agents; Z88.6 Allergy status to analgesic agent; Z92.3 Personal history of irradiation; Z90.710 Acquired absence of both cervix and uterus

== ENCOUNTER → 2023-05-30 | Outpatient (CLI) | payer BC ==
[~2023-05-30] MED LIST changes: +ONDA-83 PO
== END ==
LOC: M ONCR 11:24
PROVIDERS: ATTEND General Practice
DX: R18.8 Other ascites (principal); C78.6 Secondary malignant neoplasm of retroperitoneum and peritoneum; R63.5 Abnormal weight gain

== ENCOUNTER → 2023-06-07 | Outpatient (CLI) | payer BC | LOC: M PAL 11:46 | PROVIDERS: ATTEND Nurse Practitioner Adult Health | DX: G89.3 Neoplasm related pain (acute) (chronic) (principal); C41.9 Malignant neoplasm of bone and articular cartilage, unspecified; C78.6 Secondary malignant neoplasm of retroperitoneum and peritoneum; K59.00 Constipation, unspecified; Z51.5 Encounter for palliative care; Z79.52 Long term (current) use of systemic steroids; Z79.891 Long term (current) use of opiate analgesic; Z79.890 Hormone replacement therapy; Z79.899 Other long term (current) drug therapy; Z88.0 Allergy status to penicillin; Z88.1 Allergy status to other antibiotic agents; Z88.6 Allergy status to analgesic agent; Z92.3 Personal history of irradiation; Z90.710 Acquired absence of both cervix and uterus ==

== ENCOUNTER 2023-06-08 13:29 | Outpatient (RCR) | payer BC ==
[2023-06-04 15:07] LABS: BASO # 0.1 10^3/uL (0.0-0.2); BASO % 0.7 % (0.0-1.0); EOS % 0.1 % (0.0-3.0); HEMOGLOBIN 10.3 g/dl (12.0-15.5); LYMPH # 0.6 10^3/uL (1.5-5.0); LYMPH % 6.4 % (24.0-44.0); MEAN CORPUSCULAR HEMOGLOBIN 25.8 pg (27.0-33.0); MEAN CORPUSCULAR HGB CONC 31.2 g/dl (32.0-36.5); MEAN CORPUSCULAR VOLUME 82.5 fl (80.0-96.0); MONO # 0.6 10^3/uL (0.0-0.8); MONO % 6.4 % (2.0-8.0); NEUTROPHILS # 7.6 10^3/uL (1.5-8.5); NEUTROPHILS % 79.9 % (36.0-66.0); PLATELET COUNT, AUTOMATED 644 10^3/uL (150-450); WHITE BLOOD COUNT 9.5 10^3/uL (4.0-10.0)
[2023-06-04 15:28] LABS: ALBUMIN 3.1 G/DL (3.2-5.2); ALKALINE PHOSPHATASE 82 U/L (46-116); ALT/SGPT 15 U/L (7.0-40); AST/SGOT 17 U/L (<34); BILIRUBIN,TOTAL 0.5 MG/DL (0.3-1.2); BLOOD UREA NITROGEN 11 MG/DL (9-23); CALCIUM LEVEL 9.4 MG/DL (8.5-10.1); CARBON DIOXIDE LEVEL 27 MMOL/L (20-31); CHLORIDE LEVEL 104 MMOL/L (98-107); CREATININE FOR GFR 0.64 MG/DL (0.55-1.30); GLOMERULAR FILTRATION RATE > 60.0 (>60); GLUCOSE, FASTING 101 MG/DL (60-100); POTASSIUM SERUM 4.2 MMOL/L (3.5-5.1); SODIUM LEVEL 139 MMOL/L (136-145); TOTAL PROTEIN 6.5 G/DL (5.7-8.2)
== END 2023-06-24 ==
LOC: M ONCR 13:29
PROVIDERS: ATTEND General Practice
DX: Z51.0 Encounter for antineoplastic radiation therapy (principal); C55 Malignant neoplasm of uterus, part unspecified

== ENCOUNTER → 2023-06-18 | Outpatient (CLI) | payer BC | LOC: M ONCR 10:18 | PROVIDERS: ATTEND General Practice | DX: R10.9 Unspecified abdominal pain (principal) ==

== ENCOUNTER → 2023-06-18 | Outpatient (CLI) | payer BC ==
[~2023-06-18] VITALS: Ht 165.1 cm; Wt 82.4 kg
[2023-06-18 10:23] VITALS: BP 123/75; O2SAT 96
== END ==
LOC: M PAL 10:15
PROVIDERS: ATTEND Nurse Practitioner Adult Health
DX: C41.9 Malignant neoplasm of bone and articular cartilage, unspecified (principal); C78.00 Secondary malignant neoplasm of unspecified lung; G89.3 Neoplasm related pain (acute) (chronic); C78.7 Secondary malignant neoplasm of liver and intrahepatic bile duct; C78.6 Secondary malignant neoplasm of retroperitoneum and peritoneum; G89.29 Other chronic pain; K59.00 Constipation, unspecified; E03.9 Hypothyroidism, unspecified; F41.9 Anxiety disorder, unspecified; Z51.5 Encounter for palliative care; R11.2 Nausea with vomiting, unspecified; Z79.52 Long term (current) use of systemic steroids; Z79.891 Long term (current) use of opiate analgesic; Z79.899 Other long term (current) drug therapy; Z79.890 Hormone replacement therapy; Z88.1 Allergy status to other antibiotic agents; Z88.6 Allergy status to analgesic agent; Z92.3 Personal history of irradiation; Z90.710 Acquired absence of both cervix and uterus

== ENCOUNTER 2023-07-12 10:46 | Emergency (ER) | payer BC ==
[~2023-07-12] VITALS: Ht 165.1 cm; Wt 84.2 kg
[2023-07-12] MEDS: NS 1,000 ML IV SCH (11:45)
[2023-07-12] MEDS: ONDANSETRON 4MG 2ML VIAL IV ONE (11:55)
[2023-07-12] MEDS: HYDROMORPHONE HCL 0.5 MG/ 0.5 ML SYRINGE IV PRN (11:55)
[2023-07-12 12:06] LABS: BASO % 0.3 % (0.0-1.0); HEMATOCRIT 26.4 % (36.0-47.0); HEMOGLOBIN 8.7 g/dl (12.0-15.5); LYMPH # 0.7 10^3/uL (1.5-5.0); LYMPH % 4.9 % (24.0-44.0); MONO # 2.3 10^3/uL (0.0-0.8); MONO % 15.3 % (2.0-8.0); NEUTROPHILS # 11.7 10^3/uL (1.5-8.5); NEUTROPHILS % 78.6 % (36.0-66.0); PLATELET COUNT, AUTOMATED 372 10^3/uL (150-450); RED BLOOD COUNT 3.22 10^6/uL (4.00-5.40); WHITE BLOOD COUNT 14.8 10^3/uL (4.0-10.0)
[2023-07-12 12:36] LABS: LIPASE 18 U/L (12-53)
[2023-07-12 12:38] LABS: ALBUMIN 2.6 G/DL (3.2-5.2); ALKALINE PHOSPHATASE 89 U/L (46-116); ALT/SGPT 10 U/L (7.0-40); AST/SGOT 29 U/L (<34); BILIRUBIN,DIRECT 0.7 MG/DL (<0.4); BILIRUBIN,TOTAL 1.4 MG/DL (0.3-1.2); BLOOD UREA NITROGEN 9 MG/DL (9-23); CALCIUM LEVEL 9.1 MG/DL (8.5-10.1); CARBON DIOXIDE LEVEL 27 MMOL/L (20-31); CHLORIDE LEVEL 96 MMOL/L (98-107); CREATININE FOR GFR 0.78 MG/DL (0.55-1.30); GLOMERULAR FILTRATION RATE > 60.0 (>60); GLUCOSE, FASTING 106 MG/DL (60-100); MAGNESIUM LEVEL 1.7 MG/DL (1.8-2.4); POTASSIUM SERUM 3.6 MMOL/L (3.5-5.1); SODIUM LEVEL 130 MMOL/L (136-145); TOTAL PROTEIN 6.1 G/DL (5.7-8.2)
[2023-07-12] MEDS ORDERED: ISOVUE-370 76% 100ML VIAL As Ordered ONE (12:54)
[2023-07-12 15:30] VITALS: BP 113/62; O2SAT 98
[2023-07-12 15:36] VITALS: TEMP 97
[2023-07-17] MEDS ORDERED: PREG25CA PO (15:15)
[2023-07-20] MEDS ORDERED: DILA2TAB6 PO (17:14)
== END 2023-07-12 15:36 | disposition home or self-care (01) ==
LOC: M ED 10:46
DX: R18.8 Other ascites (principal); C41.9 Malignant neoplasm of bone and articular cartilage, unspecified; C78.7 Secondary malignant neoplasm of liver and intrahepatic bile duct; C78.00 Secondary malignant neoplasm of unspecified lung; C78.6 Secondary malignant neoplasm of retroperitoneum and peritoneum; F43.10 Post-traumatic stress disorder, unspecified; F95.2 Tourette's disorder; Z79.899 Other long term (current) drug therapy; Z88.0 Allergy status to penicillin; Z88.6 Allergy status to analgesic agent
CPT/HCPCS: 49083; 74177; 80048; 80076; 83690; 83735; 85025; 86850; 86900; 86901; 93005; 96374; 96375; 99284; J1170; J2405; Q9967

== ENCOUNTER → 2023-07-17 | Outpatient (CLI) | payer BC ==
[~2023-07-17] VITALS: Ht 165.1 cm; Wt 85.5 kg
[~2023-07-17] MED LIST changes: +PREG25CA PO
[2023-07-17 14:11] VITALS: BP 133/77; O2SAT 100
== END ==
LOC: M PAL 14:07
PROVIDERS: ATTEND Nurse Practitioner Adult Health
DX: G89.3 Neoplasm related pain (acute) (chronic) (principal); C41.9 Malignant neoplasm of bone and articular cartilage, unspecified; C78.00 Secondary malignant neoplasm of unspecified lung; C78.7 Secondary malignant neoplasm of liver and intrahepatic bile duct; C78.6 Secondary malignant neoplasm of retroperitoneum and peritoneum; R18.0 Malignant ascites; R53.83 Other fatigue; K59.00 Constipation, unspecified; Z51.5 Encounter for palliative care; Z79.890 Hormone replacement therapy; Z79.891 Long term (current) use of opiate analgesic; Z79.899 Other long term (current) drug therapy; Z88.0 Allergy status to penicillin; Z88.1 Allergy status to other antibiotic agents; Z88.6 Allergy status to analgesic agent; Z92.3 Personal history of irradiation; Z90.710 Acquired absence of both cervix and uterus

== ENCOUNTER → 2023-07-17 | Outpatient (CLI) | payer BC | LOC: M ONCR 13:18 | PROVIDERS: ATTEND General Practice | DX: R19.09 Other intra-abdominal and pelvic swelling, mass and lump (principal); R10.11 Right upper quadrant pain; Z92.89 Personal history of other medical treatment; Z92.3 Personal history of irradiation ==

== ENCOUNTER 2023-07-23 13:52 | Outpatient (RCR) | payer BC ==
[~2023-07-23 13:52] MED LIST changes: +DILA2TAB6 PO
== END 2023-07-24 ==
LOC: M ONCR 13:52
PROVIDERS: ATTEND General Practice
DX: Z51.0 Encounter for antineoplastic radiation therapy (principal); C55 Malignant neoplasm of uterus, part unspecified

== ENCOUNTER → 2023-07-31 | Outpatient (CLI) | payer BC ==
[2023-07-31 12:10] LABS: HEMATOCRIT 26.3 % (36.0-47.0); MEAN CORPUSCULAR HEMOGLOBIN 25.3 pg (27.0-33.0); MEAN CORPUSCULAR HGB CONC 30.4 g/dl (32.0-36.5); MEAN CORPUSCULAR VOLUME 83.2 fl (80.0-96.0); PLATELET COUNT, AUTOMATED 473 10^3/uL (150-450); RED BLOOD COUNT 3.16 10^6/uL (4.00-5.40); WHITE BLOOD COUNT 6.6 10^3/uL (4.0-10.0)
[2023-07-31 12:16] VITALS: BP 116/62; TEMP 97.8; O2SAT 91
[2023-07-31 12:22] LABS: INR 1.19; PROTHROMBIN TIME 14.7 SECONDS (12.5-14.5)
[2023-07-31 12:33] LABS: ALBUMIN 1.9 G/DL (3.2-5.2); ALKALINE PHOSPHATASE 96 U/L (46-116); ALT/SGPT < 9 U/L (7.0-40); AST/SGOT 28 U/L (<34); BILIRUBIN,TOTAL 0.6 MG/DL (0.3-1.2); BLOOD UREA NITROGEN 8 MG/DL (9-23); CALCIUM LEVEL 8.6 MG/DL (8.5-10.1); CARBON DIOXIDE LEVEL 29 MMOL/L (20-31); CHLORIDE LEVEL 102 MMOL/L (98-107); GLOMERULAR FILTRATION RATE > 60.0 (>60); GLUCOSE, FASTING 113 MG/DL (60-100); POTASSIUM SERUM 4.3 MMOL/L (3.5-5.1); SODIUM LEVEL 139 MMOL/L (136-145); TOTAL PROTEIN 5.8 G/DL (5.7-8.2)
== END ==
LOC: M IRPRO 11:34
PROVIDERS: ATTEND General Practice
DX: C55 Malignant neoplasm of uterus, part unspecified (principal); R18.0 Malignant ascites

== ENCOUNTER 2023-08-01 11:39 | Outpatient (RCR) | payer BC | END 2023-08-24 | LOC: M ONCR 11:39 | PROVIDERS: ATTEND General Practice | DX: C55 Malignant neoplasm of uterus, part unspecified (principal) ==

== ENCOUNTER → 2023-09-06 | Outpatient (CLI) | payer BC ==
[~2023-09-06] VITALS: Ht 165.1 cm; Wt 79.2 kg
[~2023-09-06] MED LIST changes: +PREG50CA PO
[2023-09-06 09:40] VITALS: BP 143/87; O2SAT 99
== END ==
LOC: M PAL 09:23
PROVIDERS: ATTEND Nurse Practitioner Adult Health
DX: G89.3 Neoplasm related pain (acute) (chronic) (principal); C41.9 Malignant neoplasm of bone and articular cartilage, unspecified; C78.00 Secondary malignant neoplasm of unspecified lung; C78.7 Secondary malignant neoplasm of liver and intrahepatic bile duct; C78.6 Secondary malignant neoplasm of retroperitoneum and peritoneum; K59.00 Constipation, unspecified; R32 Unspecified urinary incontinence; R50.9 Fever, unspecified; R18.0 Malignant ascites; R53.83 Other fatigue; Z51.5 Encounter for palliative care; Z79.890 Hormone replacement therapy; Z79.891 Long term (current) use of opiate analgesic; Z79.899 Other long term (current) drug therapy; Z88.0 Allergy status to penicillin; Z88.1 Allergy status to other antibiotic agents; Z88.6 Allergy status to analgesic agent; Z92.3 Personal history of irradiation; Z90.710 Acquired absence of both cervix and uterus

== ENCOUNTER → 2023-09-06 | Outpatient (CLI) | payer BC | LOC: M ONCR 10:40 | PROVIDERS: ATTEND General Practice | DX: C76.2 Malignant neoplasm of abdomen (principal); C79.51 Secondary malignant neoplasm of bone; Z71.2 Person consulting for explanation of examination or test findings; Z88.0 Allergy status to penicillin; Z88.1 Allergy status to other antibiotic agents; Z88.6 Allergy status to analgesic agent; Z79.891 Long term (current) use of opiate analgesic; Z79.899 Other long term (current) drug therapy; Z79.890 Hormone replacement therapy; Z92.3 Personal history of irradiation ==

== ENCOUNTER → 2023-09-11 | Outpatient (CLI) | payer BC | LOC: M RAD 15:24 | PROVIDERS: ATTEND Radiology Radiation Oncology | DX: C55 Malignant neoplasm of uterus, part unspecified (principal); N13.30 Unspecified hydronephrosis ==

== ENCOUNTER → 2023-09-17 | Outpatient (CLI) | payer BC ==
[~2023-09-17] MED LIST changes: +OXYB-54 PO
[2023-09-17 10:56] LABS: BASO % 0.3 % (0.0-1.0); EOS # 0.1 10^3/uL (0.0-0.5); EOS % 0.8 % (0.0-3.0); HEMATOCRIT 27.4 % (36.0-47.0); HEMOGLOBIN 8.2 g/dl (12.0-15.5); LYMPH # 0.4 10^3/uL (1.5-5.0); LYMPH % 4.9 % (24.0-44.0); MEAN CORPUSCULAR HEMOGLOBIN 24.8 pg (27.0-33.0); MEAN CORPUSCULAR HGB CONC 29.9 g/dl (32.0-36.5); MEAN CORPUSCULAR VOLUME 82.8 fl (80.0-96.0); MONO # 0.8 10^3/uL (0.0-0.8); MONO % 10.2 % (2.0-8.0); NEUTROPHILS # 6.6 10^3/uL (1.5-8.5); NEUTROPHILS % 82.8 % (36.0-66.0); PLATELET COUNT, AUTOMATED 359 10^3/uL (150-450); RED BLOOD COUNT 3.31 10^6/uL (4.00-5.40); WHITE BLOOD COUNT 7.9 10^3/uL (4.0-10.0)
[2023-09-17 11:36] LABS: ALBUMIN 2.2 G/DL (3.2-5.2); ALKALINE PHOSPHATASE 167 U/L (46-116); ALT/SGPT 15 U/L (7.0-40); AST/SGOT 57 U/L (<34); BILIRUBIN,TOTAL 0.7 MG/DL (0.3-1.2); BLOOD UREA NITROGEN 7 MG/DL (9-23); CALCIUM LEVEL 8.6 MG/DL (8.5-10.1); CARBON DIOXIDE LEVEL 29 MMOL/L (20-31); CHLORIDE LEVEL 102 MMOL/L (98-107); CREATININE FOR GFR 0.61 MG/DL (0.55-1.30); GLOMERULAR FILTRATION RATE > 60.0 (>60); GLUCOSE, FASTING 97 MG/DL (60-100); POTASSIUM SERUM 3.5 MMOL/L (3.5-5.1); SODIUM LEVEL 138 MMOL/L (136-145); TOTAL PROTEIN 5.9 G/DL (5.7-8.2)
== END ==
LOC: M ONCR 09:17
PROVIDERS: ATTEND General Practice
DX: C41.9 Malignant neoplasm of bone and articular cartilage, unspecified (principal); C55 Malignant neoplasm of uterus, part unspecified; C78.7 Secondary malignant neoplasm of liver and intrahepatic bile duct; R35.1 Nocturia; R35.0 Frequency of micturition; R10.10 Upper abdominal pain, unspecified; R11.0 Nausea; K59.00 Constipation, unspecified; Z71.2 Person consulting for explanation of examination or test findings; Z79.891 Long term (current) use of opiate analgesic; Z88.0 Allergy status to penicillin; Z88.1 Allergy status to other antibiotic agents; Z88.6 Allergy status to analgesic agent; Z79.890 Hormone replacement therapy; Z79.899 Other long term (current) drug therapy; Z92.3 Personal history of irradiation
CPT/HCPCS: 36415; 80053; 85025; G0463

== ENCOUNTER 2023-09-20 10:26 | Outpatient (RCR) | payer BC | END 2023-09-23 | LOC: M ONCR 10:26 | PROVIDERS: ATTEND General Practice | DX: Z51.0 Encounter for antineoplastic radiation therapy (principal); C55 Malignant neoplasm of uterus, part unspecified ==

== ENCOUNTER 2023-09-25 00:14 | Inpatient (IN) | payer BC ==
[~2023-09-25] VITALS: Ht 165.1 cm; Wt 83.1 kg
[2023-09-25] MEDS: ONDANSETRON 4MG 2ML VIAL IV ONE (02:02)
[2023-09-25] MEDS: HYDROMORPHONE HCL 0.5 MG/ 0.5 ML SYRINGE IV PRN ×2 (02:03→06:12)
[2023-09-25 02:13] LABS: BASO % 0.2 % (0.0-1.0); HEMATOCRIT 31.9 % (36.0-47.0); HEMOGLOBIN 9.5 g/dl (12.0-15.5); LYMPH # 0.4 10^3/uL (1.5-5.0); LYMPH % 3.1 % (24.0-44.0); MEAN CORPUSCULAR HEMOGLOBIN 24.5 pg (27.0-33.0); MEAN CORPUSCULAR HGB CONC 29.8 g/dl (32.0-36.5); MEAN CORPUSCULAR VOLUME 82.4 fl (80.0-96.0); MONO # 0.7 10^3/uL (0.0-0.8); MONO % 5.2 % (2.0-8.0); NEUTROPHILS # 11.6 10^3/uL (1.5-8.5); NEUTROPHILS % 90.9 % (36.0-66.0); PLATELET COUNT, AUTOMATED 393 10^3/uL (150-450); RED BLOOD COUNT 3.87 10^6/uL (4.00-5.40); WHITE BLOOD COUNT 12.8 10^3/uL (4.0-10.0)
[2023-09-25 02:40] LABS: ALBUMIN 2.3 G/DL (3.2-5.2); ALKALINE PHOSPHATASE 163 U/L (46-116); ALT/SGPT 14 U/L (7.0-40); AST/SGOT 61 U/L (<34); BILIRUBIN,TOTAL 0.9 MG/DL (0.3-1.2); BLOOD UREA NITROGEN 8 MG/DL (9-23); CALCIUM LEVEL 9.7 MG/DL (8.5-10.1); CARBON DIOXIDE LEVEL 28 MMOL/L (20-31); CHLORIDE LEVEL 101 MMOL/L (98-107); CREATININE FOR GFR 0.51 MG/DL (0.55-1.30); GLOMERULAR FILTRATION RATE > 60.0 (>60); GLUCOSE, FASTING 77 MG/DL (60-100); POTASSIUM SERUM 3.8 MMOL/L (3.5-5.1); SODIUM LEVEL 137 MMOL/L (136-145); TOTAL PROTEIN 5.7 G/DL (5.7-8.2)
[2023-09-25] MEDS ORDERED: HYDROmorphone HCL 2MG/ML 1ML VIAL IV PRN (05:45)
[2023-09-25] MEDS ORDERED: NARC1SPR (06:01)
[2023-09-25] MEDS ORDERED: MILKSUS3 PO (06:01)
[2023-09-25] MEDS ORDERED: TORS20TA2 PO (06:01)
[2023-09-25] MEDS ORDERED: DULC10SU2 PR (06:01)
[2023-09-25] MEDS ORDERED: HOME MED LIST COMPLETE! XX SCH (06:05)
[2023-09-25] MEDS: METOCLOPRAMIDE INJ 10MG/2ML VIAL IV ONE (06:10)
[2023-09-25] MEDS: LR 1,000 ML IV SCH (06:10)
[2023-09-25] MEDS ORDERED: PROMETHAZINE 25MG/ML 1ML VIAL IM PRN (06:45)
[2023-09-25] MEDS ORDERED: SENOKOT S TAB PO SCH (09:00)
[2023-09-25] MEDS: SENOKOT S TAB PO SCH (09:00)
[2023-09-25] MEDS: ONDANSETRON 4MG 2ML VIAL IV PRN (09:07)
[2023-09-25] MEDS ORDERED: LORazepam 0.5 MG TAB PO PRN (11:35)
[2023-09-25] MEDS ORDERED: ONDANSETRON 4MG TAB PO PRN (11:35)
[2023-09-25] MEDS ORDERED: MOM 30ML SUSPENSION UDC PO PRN (11:35)
[2023-09-25] MEDS ORDERED: BISACODYL 10MG SUPP PR PRN (11:35)
[2023-09-25] MEDS ORDERED: NALOXONE INJ 0.4MG/1ML VIAL IV PRN (11:45)
[2023-09-25] MEDS: PREGABALIN 50 MG CAP (LYRICA) PO SCH (12:27)
[2023-09-25] MEDS: VITAMIN D 1,000 INTERNATIONAL UNITS TABLET PO SCH (12:27)
[2023-09-25] MEDS: FLUoxetine 10 MG CAP PO SCH (12:27)
[2023-09-25] MEDS: CETIRIZINE (ZyrTEC) 10 MG TAB PO SCH (12:27)
[2023-09-25] MEDS: METOCLOPRAMIDE 5 MG TAB PO SCH (14:04)
[2023-09-25] MEDS ORDERED: PILL CUTTER 1 EACH XX ONE (14:06)
[2023-09-25] MEDS ORDERED: ONDA-282 PO (14:31)
[2023-09-25 15:00] VITALS: BP 116/75; O2SAT 96
[2023-09-25 15:24] VITALS: TEMP 96.6
[2023-09-25] MEDS ORDERED: ENOXAPARIN 40MG/0.4ML SYRINGE (J1650 PER 10MG) SC SCH (21:00)
[2023-09-25] MEDS ORDERED: LEVOTHYROXINE 75MCG TABLET (0.075MG) PO SCH (21:00)
[2023-09-26] MEDS ORDERED: OLAN5ZYD PO (17:14)
[2023-09-28] MEDS ORDERED: FENTANYL REMOVAL DOCUMENTATION MISC XX SCH (15:00)
== END 2023-09-25 15:27 | disposition home or self-care (01) | DRG 861 ==
LOC: M ED 00:14 → M ED INP 05:39
PROVIDERS: ADMIT Preventive Medicine Undersea and Hyperbaric Medicine; ATTEND Preventive Medicine Undersea and Hyperbaric Medicine
DX: G89.3 Neoplasm related pain (acute) (chronic) (principal); C49.9 Malignant neoplasm of connective and soft tissue, unspecified; C78.7 Secondary malignant neoplasm of liver and intrahepatic bile duct; C79.51 Secondary malignant neoplasm of bone; N13.30 Unspecified hydronephrosis; Z66 Do not resuscitate; R10.10 Upper abdominal pain, unspecified; Z79.891 Long term (current) use of opiate analgesic; Z79.899 Other long term (current) drug therapy; Z88.0 Allergy status to penicillin; Z88.1 Allergy status to other antibiotic agents; Z92.3 Personal history of irradiation

== ENCOUNTER 2023-10-03 15:31 | Outpatient (RCR) | payer BC ==
[~2023-10-03 15:31] MED LIST changes: +MILKSUS3 PO; +NARC1SPR; +OLAN5ZYD PO; +ONDA-282 PO
[2023-10-09] MEDS ORDERED: OLAN5ZYD PO (12:36)
[2023-10-29] MEDS ORDERED: ONDA-83 PO (10:44)
== END 2023-10-24 ==
LOC: M ONCR 15:31
PROVIDERS: ATTEND General Practice
DX: Z51.0 Encounter for antineoplastic radiation therapy (principal); C55 Malignant neoplasm of uterus, part unspecified

== ENCOUNTER → 2023-10-09 | Outpatient (CLI) | payer BC ==
[~2023-10-09] VITALS: Ht 165.1 cm; Wt 74.8 kg
[2023-10-09 10:32] VITALS: BP 134/89; O2SAT 98
== END ==
LOC: M PAL 09:55
PROVIDERS: ATTEND Nurse Practitioner Adult Health
DX: G89.3 Neoplasm related pain (acute) (chronic) (principal); C41.9 Malignant neoplasm of bone and articular cartilage, unspecified; C78.00 Secondary malignant neoplasm of unspecified lung; C78.7 Secondary malignant neoplasm of liver and intrahepatic bile duct; C78.6 Secondary malignant neoplasm of retroperitoneum and peritoneum; K59.00 Constipation, unspecified; F41.9 Anxiety disorder, unspecified; R32 Unspecified urinary incontinence; R18.0 Malignant ascites; R53.83 Other fatigue; R63.0 Anorexia; R11.0 Nausea; Z51.5 Encounter for palliative care; Z79.890 Hormone replacement therapy; Z79.891 Long term (current) use of opiate analgesic; Z79.899 Other long term (current) drug therapy; Z88.0 Allergy status to penicillin; Z88.1 Allergy status to other antibiotic agents; Z88.6 Allergy status to analgesic agent; Z92.3 Personal history of irradiation; Z90.710 Acquired absence of both cervix and uterus

== ENCOUNTER → 2023-10-11 | Outpatient (CLI) | payer BC ==
[2023-10-11 14:15] VITALS: BP 145/96; TEMP 97.1; O2SAT 95
== END ==
LOC: M IRPRO 14:08
PROVIDERS: ATTEND General Practice
DX: C55 Malignant neoplasm of uterus, part unspecified (principal); R18.0 Malignant ascites

== ENCOUNTER 2023-11-15 00:40 | Observation (INO) | payer BC ==
[2023-11-15 01:22] VITALS: TEMP 93.2
[2023-11-15 01:33] VITALS: BP 97/55
[2023-11-15] MEDS: MORPHINE 4 MG/ML 1ML VIAL IV ONE (02:00)
[2023-11-15] MEDS: NS 500 ML IV ONE (02:00)
[2023-11-15] MEDS ORDERED: HYDROmorphone HCL 2MG/ML 1ML VIAL IV PRN (02:20)
[2023-11-15] MEDS ORDERED: MORPHINE 10MG/0.5ML ORAL CONCENTRATE SOLUTION U/D SL PRN (02:20)
[2023-11-15 03:10] VITALS: O2SAT 99
[2023-11-15] MEDS: KETOROLAC 30 MG/ML 1ML VIAL IV SCH (03:10)
[2023-11-15] MEDS ORDERED: fentaNYL 75 MCG/HR PATCH TOP SCH (21:00)
[2023-11-15] MEDS ORDERED: FENTANYL REMOVAL DOCUMENTATION MISC XX SCH (21:00)
== END 2023-11-15 03:29 | disposition expired ==
LOC: M ED 00:40 → M ED INP 00:41
PROVIDERS: ADMIT Student in an Organized Health Care Education/Training Program; ATTEND Student in an Organized Health Care Education/Training Program
DX: G89.3 Neoplasm related pain (acute) (chronic) (principal); C41.9 Malignant neoplasm of bone and articular cartilage, unspecified; G93.41 Metabolic encephalopathy; H50.22 Vertical strabismus, left eye; Z88.0 Allergy status to penicillin; Z88.8 Allergy status to other drugs, medicaments and biological substances; Z79.899 Other long term (current) drug therapy
CPT/HCPCS: 93041; 96374; 96375; 99285; J1100; J1885